=== PATIENT | female | born 1980 | race Caucasian/White ===

== ENCOUNTER 2018-05-19 14:55 | Emergency (ER) | payer OTHER ==
[~2018-05-19] VITALS: Ht 157.5 cm; Wt 582.0 kg
[~2018-05-19 14:55] MED LIST: VICODIN
[2018-05-19 15:09] VITALS: Ht 157.5 cm; Wt 582.0 kg
[2018-05-19 16:26] LABS: PLATELET COUNT 271 x10^3mcL (130-400)
[2018-05-19 16:35] LABS: CALCIUM 8.9 mg/dL (8.5-10.1); CARBON DIOXIDE 24.8 mmol/L (21-32); CHLORIDE SERUM 101 mmol/L (98-107); CREATININE SERUM 0.8 mg/dL (0.6-1.0); GFR1 > 60 mL/min; GLUCOSE SERUM 115 mg/dL (74-106); POTASSIUM SERUM 3.7 mmol/L (3.5-5.1); SODIUM SERUM 137 mmol/L (136-145)
[2018-05-19 16:36] LABS: RED CELL DISTRIBUTION WIDTH 15.1 % (11.5-14.5)
[2018-05-19 16:39] LABS: ALBUMIN 3.9 g/dL (3.4-5.0); ALKALINE PHOSPHATASE 101 U/L (46-116); ALT/SGPT 19 U/L (14-59); AST/SGOT 17 U/L (15-37); BILIRUBIN TOTAL 0.29 mg/dL (0.20-1.00); LIPASE 131 IU/L (73-393); TOTAL PROTEIN, SERUM 8.4 g/dL (6.4-8.2)
[2018-05-19 17:14] LABS: BAND NEUTROPHIL 3 % (0-10); BASOPHIL 0 % (0-2); MONOCYTE 4 % (0-7); PLATELET MORPHOLOGY PLATELETS NORMAL; SEGMENTED NEUTROPHILS 77 % (37-75); rbc morphology (normal/abnorm) NORMAL (NORMAL)
[2018-05-19 18:21] VITALS: BP 94/60
== END 2018-05-19 18:30 | disposition home or self-care (01) ==
LOC: ED 14:55
PROVIDERS: Emergency Medicine
DX: R10.13 Epigastric pain (principal); Z98.890 Other specified postprocedural states
CPT/HCPCS: J2765; J7030

== ENCOUNTER 2020-04-21 20:31 | Emergency (ER) | payer OTHER ==
[~2020-04-21] VITALS: Ht 152.4 cm; Wt 55.3 kg
[2020-04-21 21:04] VITALS: Ht 152.4 cm; Wt 55.3 kg
[2020-04-21 22:55] VITALS: BP 116/77
== END 2020-04-21 22:55 | disposition home or self-care (01) ==
LOC: ED 20:31
DX: S51.811A Laceration without foreign body of right forearm, initial encounter (principal); Z90.49 Acquired absence of other specified parts of digestive tract; W23.0XXA Caught, crushed, jammed, or pinched between moving objects, initial encounter; Y93.89 Activity, other specified; Y92.89 Other specified places as the place of occurrence of the external cause; Y99.8 Other external cause status
CPT/HCPCS: 90715